=== PATIENT | male | born 1950 | race Caucasian/White ===

== ENCOUNTER 2016-11-15 12:35 | Inpatient (IN) | payer MEDICARE ==
[~2016-11-15] VITALS: Ht 165.1 cm; Wt 68.0 kg
--- NOTE | 2016-11-15 10:40 | NUR ---
RECEIVED PT IN STABLE CONDITION FROM AM NURSE. AWAKE,ALERT AND ORIENTED . ON TELE MONITOR. WITH IVF INFUISNG WELL ON THE RT FA#[id number]. CLEAR AND PATENT. US VENOUS BLE AND ARTERIAL STILL GOING ON AT BEDSIDE. PT ON 1: 1 SITTER DUE TO BEING COMBATIVE. SIDE RAILS IP X2. BED ON LOW POSITION. CALL LIGHT PLACED WITHIN EASY REACH. WILL CONTINUE TO MONITOR. Addendum: 11/15/16 at 1950 by Maranda Gilliam RN PLS CANCEL ABOVE NOTES . CAREGIVER MISTAKE.
--- NOTE | 2016-11-15 12:35 | NUR ---
Patient was BIBA at this time. Patient triaged in triage room on [facility].
[2016-11-15 12:47] VITALS: BP 143/102
[2016-11-15] MEDS ORDERED: NACL 0.9% 1,000 ML IV ONE ×4 (12:50→16:40)
--- NOTE | 2016-11-15 13:00 | NUR ---
Patient taken to bed 04 via gurney per EMS.
--- NOTE | 2016-11-15 13:05 | NUR ---
PATIENT brought in by ems from [facility] ([facility]) c/o generalized weakness , poor intake, and unsteady gait with 9lbs weight loss in the past month hx---htn, dm, gerd, schizoaffective, major depression,hyperlipidemia, bph, pressure ulcer of sacral stage 3 rx----zyprexa, depakote . DENIES N/V/D; SKIN IS PINK/WARM/DRY; AAOX4; LUNGS CLEAR BL; HR EVEN AND REGULAR; PT DENIES ANY FEVER, CP, SOB, OR COUGH AT THIS TIME; PATIENT STATES PAIN OF 0/10 AT THIS TIME; VSS; PATIENT POSITIONED FOR COMFORT; HOB ELEVATED; BEDRAILS UP X2; BED DOWN. ER MD MADE AWARE OF PT STATUS.
[2016-11-15] MEDS ORDERED: INSULIN HUMAN REGULAR 100 UNITS/ML 10 ML VIAL IVP ONE ×2 (13:10→13:25)
--- NOTE | 2016-11-15 13:16 | NUR ---
XRAY at bedside.
[2016-11-15 13:21] LABS: BASOPHILS # (AUTO) 0.1 K/uL (0.00-0.22); BASOPHILS % (AUTO) 0.7 % (0.0-2.0); EOSINOPHILS # (AUTO) 0.1 K/uL (0-0.4); EOSINOPHILS % (AUTO) 1.4 % (0.0-4.0); HEMATOCRIT 46.7 % (36-52); HEMOGLOBIN 15.4 g/dL (12.0-18.0); LYMPHOCYTES # (AUTO) 0.9 K/uL (2.0-11.5); LYMPHOCYTES % (AUTO) 8.2 % (20.5-51.1); MEAN CORPUSCULAR HEMOGLOBIN 32 pg (27-31); MEAN CORPUSCULAR HGB CONC 33 g/dL (33-37); MEAN CORPUSCULAR VOLUME 98 fL (80-94); MONOCYTES # (AUTO) 1.2 K/uL (0.8-1.0); MONOCYTES % (AUTO) 11.8 % (1.7-9.3); NEUTROPHILS # (AUTO) 8.1 K/uL (1.8-7.7); NEUTROPHILS % (AUTO) 77.9 % (42.2-75.2); PLATELET COUNT (AUTO) 352 K/uL (140-450); RED BLOOD CELL COUNT(AUTO) 4.76 MIL/uL (4.20-6.10); WHITE BLOOD COUNT (AUTO) 10.4 K/uL (4.8-10.8)
[2016-11-15 13:30] LABS: APPEARANCE,URINE CLOUDY (CLEAR); BILIRUBIN,URINE NEGATIVE (NEGATIVE); COLOR,URINE YELLOW (YELLOW); LEUKOCYTE ESTERASE ,URINE 2+ (NEGATIVE); PH,URINE 5.5 (5.0-9.0); PROTEIN,URINE 1+ (NEGATIVE); UGLUCOSE 3+ (NEGATIVE); UROBILINOGEN,URINE 0.2 EU/dL (0.2 - 1)
[2016-11-15 13:36] LABS: AMPHETAMINE, URINE NEG. ng/ml (NEG <=1000); BARBITURATE, URINE NEG. ng/ml (NEG <=200); BENZODIAZEPINE, URINE NEG. ng/mL (NEG <=200); CANNABINOID, URINE NEG. ng/mL (NEG <=50); COCAINE, URINE NEG. ng/mL (NEG <=300); OPIATE, URINE NEG. ng/mL (NEG <=2000); PHENCYCLIDINE SCREEN,URINE NEG. ng/mL (NEG <=25)
[2016-11-15 13:38] LABS: PROTHROMBIN TIME 10.5 secs (10.8-13.4)
[2016-11-15 13:40] LABS: ALANINE AMINOTRANSFERASE 30 U/L (12-78); ALBUMIN 3.3 g/dL (3.4-5.0); ALCOHOL, BLOOD < 3 mg/dL (<3); ALKALINE PHOSPHATASE 114 U/L (46-116); ASPARTATE AMINOTRANSFERASE 19 U/L (15-37); BILIRUBIN,DIRECT 0.2 mg/dL (0.0-0.3); TOTAL BILIRUBIN 0.5 mg/dL (0.0-1.0); TOTAL PROTEIN, SERUM 8.9 g/dL (6.4-8.2)
[2016-11-15 13:43] LABS: ALBUMIN 3.4 g/dL (3.4-5.0); ANION GAP 18.2 (8-16); CALCIUM 10.1 mg/dL (8.5-10.1); CARBON DIOXIDE 21.5 mmol/L (21-32); CREATININE 1.8 mg/dL (0.6-1.3); POTASSIUM 5.7 mmol/L (3.5-5.1); TOTAL BILIRUBIN 0.5 mg/dL (0.0-1.0); TOTAL PROTEIN, SERUM 8.8 g/dL (6.4-8.2)
[2016-11-15 13:45] LABS: BLOOD, URINE 1+ (NEGATIVE); WBC,URINE 60-80 /HPF (0-5)
[2016-11-15 13:46] LABS: BACTERIA,URINE FEW /HPF (None Seen); NITRITE, URINE POSITIVE (NEGATIVE); SQUAMOUS EPITHELIAL CELL,UR 0-3 (FEW) /LPF (0-3 (FEW))
[2016-11-15 13:47] LABS: URINE AMORPHOUS URATE 1+ /HPF (None Seen)
[2016-11-15 13:59] LABS: PARTIAL THROMBOPLASTIN TIME 30.8 secs (22-35.6); PROTHROMBIN TIME 10.5 secs (10.8-13.4)
[2016-11-15] MEDS ORDERED: cefTRIAXone 1,000 MG VIAL ONE (14:13)
[2016-11-15] MEDS ORDERED: HYDROcodone/APAP 7.5/325 MG 1 TAB PO PRN (15:20)
[2016-11-15] MEDS ORDERED: MORPHINE SULFATE 2 MG/ML SYR IVP PRN (15:20)
[2016-11-15] MEDS ORDERED: DOCUSATE SODIUM 100 MG GELCAP PO PRN (15:20)
[2016-11-15] MEDS ORDERED: ONDANSETRON 4 MG/2 ML VIAL IM/IVP PRN (15:20)
[2016-11-15] MEDS ORDERED: ACETAMINOPHEN 325 MG TAB PO PRN (15:20)
--- NOTE | 2016-11-15 15:34 | NUR ---
RN NOT AVAILABLE FOR REPORT AT THIS TIME, WILL CALL BACK
--- NOTE | 2016-11-15 15:49 | NUR ---
Patient will be admitted to care of DR MEAD. Admited to TELE. Will go to [id number]. Belongings list completed. Report to NALINI PETERSON.
[2016-11-15 16:10] VITALS: BP 148/98
--- NOTE | 2016-11-15 16:10 | NUR ---
PT BROUGHT UP FROM ER IN [facility], PT AWAKE ALERT, AMBULATES WITH SHUFFLING GATE FROM HALLWAY TO BED, PT OX1 ONLY, MUMBLING, FOLLOWS COMMANDS SOMEWHAT, RESP EVEN UNLABORED, SKIN WARM DRY COLOR WNL, REDNESS TO SACRAL AREA, SCALEY SCABS NOTED TO LEFT ELBOW, SMALL ABRASION TO RIGHT KNEE NOTED, WILL TAKE PICS, VSS, IV TO R FA WRAPPED FOR PROTECTION, PT WITH ENLARGED SCROTUM, DR GILMAN AT [facility] FOR EVAL, CALL ANTOINE WITHIN REACH, BED LOCKED IN LOW POSITION, BED ALARM ON, SIDE RAILS UP, WILL CONTINUE TO MONITOR
[2016-11-15 16:17] LABS: MAGNESIUM 2.1 mg/dL (1.8-2.4); PHOSPHORUS 3.3 mg/dL (2.5-4.9)
[2016-11-15 16:24] LABS: FREE T4 (FREE THYROXINE) 1.25 ng/dL (0.76-1.46); THYROID STIMULATING HORMONE 2.81 uIU/mL (0.34-3.76)
[2016-11-15] MEDS: BLOOD GLUCOSE MONITORING 1 DEV DEV FS SCH ×2 (16:30→20:39)
[2016-11-15] MEDS ORDERED: DEXTROSE 50% 50 ML SYR IVP PRN (16:30)
--- NOTE | 2016-11-15 16:30 | NUR ---
PT GETTING MORE AGGITATED, TAKING OFF LEADS, GETTING UP OUT OF BED, MAKING FISTS TO IMITATE PUNCHING NURSE, PATIENT RIPPED OUT HIS IV, PT PERSUADED TO RETURN TO BED, BLEEDING CONTROLLED, MADE AWARE OF PT STATUS BY CHARGE NURSE.
[2016-11-15] MEDS ORDERED: SODIUM POLYSTYRENE 15 GM/60 ML UDBTL PO SCH (16:40)
[2016-11-15] MEDS ORDERED: HALOPERIDOL IM 5 MG/ML VIAL IM PRN (16:45)
--- NOTE | 2016-11-15 16:55 | NUR ---
NEW IV STARTED TO RIGHT RA 20G, ATIVAN GIVEN PER ORDER, MITTENS PLACED TO BILAT HANDS, IV WRAPPED WELL WITH PUMA, BED LOCKED IN LOW POSITION, SIDE RAILS UP X2, BED ALARM ON. LAB AT BEDSIDE FOR BLOOD DRAW.
[2016-11-15] MEDS ORDERED: LORazepam 2 MG/ML VIAL ONE (16:56)
[2016-11-15] MEDS: NACL 0.9% 1,000 ML IV SCH ×2 (16:56→22:54)
--- NOTE | 2016-11-15 16:57 | NUR ---
ATIVAN GIVEN IV PER ORDER FOR AGITATION AND COMBATIVENESS.
--- NOTE | 2016-11-15 17:15 | NUR ---
PICTURES OF WOUNDS TAKEN LEFT ELBOW [id number] RIGHT KNEE 2X2CM
--- NOTE | 2016-11-15 17:20 | NUR ---
PT NOW SLEEPING QUIETLY IN NAD, RESP EVEN UNLABORED, SKIN WARM DRY COLOR WNL, PT REPLACED ON TAXICAB STARTER, IVF INFUSING WELL, US TECH TO BEDSIDE.
[2016-11-15 17:33] LABS: LACTIC ACID 3.4 mmol/L (0.4-2.0)
[2016-11-15 17:34] LABS: PARTIAL THROMBOPLASTIN TIME 31.4 secs (22-35.6); PROTHROMBIN TIME 10.9 secs (10.8-13.4)
--- NOTE | 2016-11-15 17:50 | NUR ---
PT AWAKE, TAKES OFF MITTENS REPEATEDLY, 1:1 SITTER AT BEDSIDE, PT MULUGETA PO KEXALATE WELL WITHOUT PROBLEM.
--- NOTE | 2016-11-15 19:36 | NUR ---
REPORT GIVEN TO NIGHT NURSE, PT IN STABLE CONDITION.
--- NOTE | 2016-11-15 19:40 | NUR ---
RECEIVED PT IN STABLE CONDITION FROM AM NURSE. AWAKE,ALERT AND ORIENTED . ON TELE MONITOR. WITH IVF INFUISNG WELL ON THE RT FA#$20. CLEAR AND PATENT. US VENOUS BLE AND ARTERIAL STILL GOING ON AT BEDSIDE. PT ON 1: 1 SITTER DUE TO BEING COMBATIVE. SIDE RAILS IP X2. BED ON LOW POSITION. CALL LIGHT PLACED WITHIN EASY REACH. WILL CONTINUE TO MONITOR
[2016-11-15 20:00] VITALS: BP 148/96
[2016-11-15] MEDS: QUEtiapine FUMARATE 25 MG TAB PO SCH (21:00)
[2016-11-15] MEDS ORDERED: INSULIN DETEMIR 100 UNITS/ML 10 ML VIAL SUBQ SCH (21:00)
--- NOTE | 2016-11-15 21:00 | NUR ---
BLOOD SUGAR WAS CHECKED RESULT 389. PT NPO. JEANNIE KHOURY. DR. GONG CALLED BACK AND HE SAID OK TO GIVE ONLY 8 UNITS HUMALOG COVERAGE INSTEAD OF 15 UNITS SCHEDULED .
[2016-11-15] MEDS: INSULIN LISPRO SLIDING SCALE 100 UNITS/ML VIAL SUBQ PRN (21:02)
[2016-11-15] MEDS: LORazepam 2 MG/ML VIAL IVP PRN (21:09)
--- NOTE | 2016-11-15 21:09 | NUR ---
PT IS STILL AGITATED, TRYING TO GET OUT OF BED. MEDICATED WITH ATIVAN IVP ORDERED. WILL CONTINUE TO MONITOR TO CALM HIM DOWN FOR PT STILL NEED TO HAVE CT ABDOMEN/PELVIS DONE.
--- NOTE | 2016-11-15 22:00 | NUR ---
PT INCONTINENT. HAS BEEN CHANGED 2X. CLEANED AND KEPT DRY. SCROTUM AREA SWOLLEN AND PINK COLORED.
--- NOTE | 2016-11-15 23:00 | NUR ---
TO CT DEPT BY BED FOR CT ABDOMEN /PELVIS.
--- NOTE | 2016-11-15 23:17 | NUR ---
BACK FROM CT DEPT. WILL FOLLOW UP RESULT OF CT ABDOMEN /PELVIS.
[2016-11-15 23:45] VITALS: BP 148/98
--- NOTE | 2016-11-16 00:39 | NUR ---
PT IS AWAKE, VERY AGITATED , TRYING TO GET OUT OF BED AND PULLING TUBINGS. MEDICATED WITH HALDOL 1MG IM ORDERED PRN.
--- NOTE | 2016-11-16 01:45 | NUR ---
PAGED DR. GONG FOR RESULTS OF CT ABDOMEM/PELVIS AND US ARTERIAL BLE. CALLED BACK AND MADE HIM AWARE. NO ORDERS MADE.
[2016-11-16] MEDS: NACL 0.9% 1,000 ML IV SCH ×4 (02:36→17:58)
--- NOTE | 2016-11-16 03:30 | NUR ---
PT STILL WITH PERIODS OF CONFUSION. 1:1 SITTER AT BEDSIDE.
[2016-11-16] MEDS ORDERED: METO100T22 PO (03:55)
[2016-11-16] MEDS ORDERED: ACET-2619 PO (03:55)
[2016-11-16] MEDS ORDERED: QUET100T PO (03:55)
[2016-11-16] MEDS ORDERED: INSU-1331 SUBQ (03:55)
[2016-11-16] MEDS ORDERED: METF500T64 PO (03:55)
[2016-11-16] MEDS ORDERED: MAGN400S60 PO (03:55)
[2016-11-16] MEDS ORDERED: QUET200T PO (03:55)
[2016-11-16] MEDS ORDERED: [UNRECOGNIZED DRUG - CODE] PO (03:55)
[2016-11-16] MEDS ORDERED: FURO-572 PO (03:55)
[2016-11-16] MEDS ORDERED: ASPI81CT89 PO (03:55)
[2016-11-16] MEDS ORDERED: LISI5TAB18 PO (03:55)
[2016-11-16] MEDS ORDERED: [UNRECOGNIZED DRUG - CODE] PO (03:55)
[2016-11-16] MEDS ORDERED: PANT40EC PO (03:55)
[2016-11-16] MEDS ORDERED: MEMA5TAB PO (03:55)
[2016-11-16] MEDS ORDERED: TOLT2TAB PO (03:55)
[2016-11-16] MEDS ORDERED: MIRT15OD PO (03:55)
[2016-11-16] MEDS ORDERED: DONE5TAB2 PO (03:55)
[2016-11-16] MEDS ORDERED: MAA30 PO (03:57)
[2016-11-16 04:30] VITALS: BP 144/95
--- NOTE | 2016-11-16 05:30 | NUR ---
PT HAS BEEN CLEANED AND TURNED , FOUND SACROCOCCYGEAL AREA WITH OPEN WOUND. PICTURE TAKEN. WILL ENDORSE TO AM NURSE FOR MD TO GIVE TREATMENT.
[2016-11-16] MEDS: BLOOD GLUCOSE MONITORING 1 DEV DEV FS SCH ×4 (06:16→21:03)
[2016-11-16] MEDS: INSULIN LISPRO SLIDING SCALE 100 UNITS/ML VIAL SUBQ PRN ×4 (06:22→21:03)
--- NOTE | 2016-11-16 06:22 | NUR ---
BLOOD SUGAR THIS AM WAS CHECKED RESULT 310. INSULIN COVERAGE GIVEN SUBCUTANEOUS RT DELTOID. PT HAS CONTINUOUS IVF INFUSING @150 ML /HR.
--- NOTE | 2016-11-16 07:20 | NUR ---
ENDORSED PT IN STABLE CONDITION TO AM NURSE.
--- NOTE | 2016-11-16 07:21 | NUR ---
RECEIVED REPORT FROM THE SERVICES REP NURSE AT BEDSIDE FOR CONTINUITY OF CARE. I INTRODUCED MYSELF AND UPDATED THE BOARD. PT IS AWAKE AND CALM. NO SIGNS OF DISTRESS OR COMBATIVENESS LIKE YESTERDAY. HE HAS AN IV ON R FA 20G, NS 150ML, CLING WRAPPED. MITTENS IN PLACE. NOTED NEW SACRAL ULCER, 1CM X 0.2CM. PSORIASIS ON L ELBOW, R KNEE SCAB, REDNESS IN PERIAREA, ENLARGED SCROTUM. THERE WAS AN ORDER FOR A JOVEL. WILL BE BACK TO ASSESS.
--- NOTE | 2016-11-16 07:50 | NUR ---
V/S WITHIN NORMAL RANGE. SITTER AT BEDSIDE. WILL GET SUPPLIES FOR JOVEL CATH.
[2016-11-16 08:00] VITALS: BP 145/98
--- NOTE | 2016-11-16 08:00 | NUR ---
JOVEL CATH ADMINISTERED. FIRST CLEAR YELLOW URINE, THEN OPAQUE WHITE FLUID. 2000ML IN JOVEL BAG. WILL SPEAK TO MD AND SEND SAMPLE FOR CULTURE.
[2016-11-16] MEDS: QUEtiapine FUMARATE 25 MG TAB PO SCH (08:52)
--- NOTE | 2016-11-16 08:55 | NUR ---
ADMINISTERED MORNING MED. CRUSHED IN APPLE SAUCE. PT TOLERATED WELL. DR GILMAN CAME IN. NOTED THE JOVEL BAG. AGREED HE SHOULD BE ON A PUREED DIET. NOTED THE FACILITY MED. WILL RECONCILE.
[2016-11-16 09:29] LABS: HEMATOCRIT 42.4 % (36-52); HEMOGLOBIN 14.2 g/dL (12.0-18.0); MEAN CORPUSCULAR HEMOGLOBIN 33 pg (27-31); MEAN CORPUSCULAR HGB CONC 34 g/dL (33-37); MEAN CORPUSCULAR VOLUME 97 fL (80-94); PLATELET COUNT (AUTO) 297 K/uL (140-450); RED BLOOD CELL COUNT(AUTO) 4.37 MIL/uL (4.20-6.10); RED CELL DISTRIBUTION WIDTH 12.1 % (11.6-13.7); WHITE BLOOD COUNT (AUTO) 11.9 K/uL (4.8-10.8)
--- NOTE | 2016-11-16 09:30 | NUR ---
DROPPED OFF URINE SAMPLE OFF TO LAB.
[2016-11-16 09:40] LABS: BAND % (MANUAL) 17 % (0-8); LYMPHOCYTES % (MANUAL) 6 % (20-46); MONOCYTES % (MANUAL) 7 % (5-12); NEUTROPHILS % (MANUAL) 70 (43-65)
--- NOTE | 2016-11-16 09:54 | NUR ---
PT RESTING PEACEFULLY. NO SIGNS OF DISTRESS. WILL CONTINUE TO MONITOR PT.
[2016-11-16] MEDS ORDERED: MAGNESIUM HYDROXIDE 2400 MG/30 ML UDC PO PRN (09:55)
[2016-11-16 09:59] LABS: MAGNESIUM 1.8 mg/dL (1.8-2.4); PHOSPHORUS 2.2 mg/dL (2.5-4.9)
[2016-11-16 10:00] LABS: ANION GAP 14.3 (8-16); CALCIUM 8.7 mg/dL (8.5-10.1); CARBON DIOXIDE 24.5 mmol/L (21-32); POTASSIUM 3.8 mmol/L (3.5-5.1)
[2016-11-16 10:01] LABS: CREATININE 1.2 mg/dL (0.6-1.3)
[2016-11-16] MEDS ORDERED: INSULIN DETEMIR 100 UNITS/ML 10 ML VIAL SUBQ SCH (10:06)
[2016-11-16 12:00] VITALS: BP 153/92
--- NOTE | 2016-11-16 12:00 | NUR ---
UROLOGIST CAME TO SEE PT.
--- NOTE | 2016-11-16 12:30 | NUR ---
PT SPOKE TO BROTHER ON PHONE, ABLE TO ANSWER AND SAY "I MAY NEVER WALK AGAIN." SITTER AT BEDSIDE. PER SITTER, PT ATE 100%. TRIES TO TAKE HIS MITTENS OFF. WILL CONTINUE TO MONITOR PT.
--- NOTE | 2016-11-16 14:07 | NUR ---
PT RESTING IN BED. SITTER AT BEDSIDE. NO SIGNS OF DISTRESS. NO SIGNS OF PAIN. FLACC-0. WILL CONTINUE TO MONITOR PT.
[2016-11-16 16:00] VITALS: BP 153/92
--- NOTE | 2016-11-16 16:45 | NUR ---
PT SLEEPING WITH SITTER AT BEDSIDE. NO SIGNS OF DISTRESS. WILL CONTINUE TO MONITOR PT.
[2016-11-16] MEDS: metFORMIN 500 MG TAB PO SCH (17:58)
--- NOTE | 2016-11-16 19:10 | NUR ---
ENDORSED PT TO THE NIGHTSHIFT NURSE AT BEDSIDE FOR CONTINUITY OF CARE. PT IS IN STABLE CONDITION.
--- NOTE | 2016-11-16 19:10 | NUR ---
RECEIVED REPORT FROM NALINI QUINN AT BEDSIDE. INITIAL ASSESSMENT COMPLETED. PT AAX2; CONFUSED. PT MUMBLES. PT HAS MITTENS ON; DAY SHIFT NURSE STATES THAT PT WAS COMBATIVE DURING THE DAY AND TOOK OFF TELE MONITOR. PT STABLE AT THIS TIME. PT ON ROOM AIR, STABLE. PT HAS A JOVEL CATHETER IN PLACE. PT HAS SACRAL DECUBITUS, SCROTAL SWELLING. PT HAS LEFT ELBOW SCAR, RIGHT KNEE ABRASION. PT HAS CDS, PT HAS A 1:1 SITTER. WILL CONTINUE TO MONITOR PT. Addendum: 11/16/16 at 1946 by Rowena Peck RN SACRAL DECUBITUS IS OPEN TO AIR.
[2016-11-16 20:00] VITALS: BP 141/109
--- NOTE | 2016-11-16 20:00 | NUR ---
PT TURNED AND REPOSITIONED. WILL CONTINUE TO MONITOR PT.
[2016-11-16] MEDS: DONEPEZIL 10 MG TAB PO SCH (20:38)
[2016-11-16] MEDS: MEMANTINE 10 MG TAB PO SCH (20:38)
[2016-11-16] MEDS: QUEtiapine FUMARATE 100 MG TAB PO SCH (20:39)
--- NOTE | 2016-11-16 20:41 | NUR ---
PT TOLERATED 2100 MEDS WELL. WILL CONTINUE TO MONITOR PT.
--- NOTE | 2016-11-16 22:00 | NUR ---
PT TURNED AND REPOSITIONED. PT STABLE, WILL CONTINUE TO MONITOR PT.
[2016-11-17] VITALS: BP 145/105
--- NOTE | 2016-11-17 | NUR ---
PT TURNED AND REPOSITIONED. PT TOLERATED IT WELL. WILL CONTINUE TO MONITOR.
[2016-11-17] MEDS: NACL 0.9% 1,000 ML IV SCH ×2 (00:50→06:57)
--- NOTE | 2016-11-17 02:00 | NUR ---
PT TURNED/REPOSITIONED. NO SIGNS OF DISTRESS NOTED. SITTER AT BEDSIDE.
--- NOTE | 2016-11-17 03:10 | NUR ---
PT AWAKE WATCHING TV, NO SIGNS OF DISTRESS OR DISCOMFORT NOTED. WILL CONTINUE TO MONITOR PT.
[2016-11-17 04:00] VITALS: BP 149/98
--- NOTE | 2016-11-17 04:00 | NUR ---
PT TURNED/REPOSITIONED. NO SIGNS OF DISTRESS NOTED. SITTER AT BEDSIDE.
--- NOTE | 2016-11-17 06:00 | NUR ---
PT REPOSITIONED/TURNED. PT TOLERATED IT WELL. WILL CONTINUE TO MONITOR PT.
[2016-11-17] MEDS: BLOOD GLUCOSE MONITORING 1 DEV DEV FS SCH ×4 (06:22→21:00)
--- NOTE | 2016-11-17 07:18 | NUR ---
DR NOEL MADE AWARE OF PT'S V/S, BP 165/106, HR 103. NO SIGNS OF ACUTE DISTRESS NOTED. PT IS AWAKE AND RESPONSIVE. NEW ORDERS RECEIVED FROM DR. NOEL. NOTED AND CARRIED OUT.
--- NOTE | 2016-11-17 07:34 | NUR ---
ENDORSED PLAN OF CARE TO DAY SHIFT NURSE. PT IN STABLE CONDITION. SITTER AT BEDSIDE.
--- NOTE | 2016-11-17 07:36 | NUR ---
PT AWAKE AND RESPONSIVE, WITH PERIODS OF CONFUSION. BREATHING EVENLY AND UNLABORED. NO SIGNS OF ACUTE DISTRESS. SKIN IS WARM AND DRY, OFFLOAD TO PRESSURE AREAS. NO EPISODES OF ANY NAUSEA OR VOMITING. WITH JOVEL CATHETER INTACT AND PATENT, NOTED 300ML OF CLEAR YELLOW URINE. FLACC 0. ALL NEEDS ATTENDED, SAFETY PRECAUTIONS MAINTAINED. 1:1 SITTER AT BEDSIDE. CALL LIGHT WITHIN REACH.
[2016-11-17 07:39] VITALS: BP 165/106
[2016-11-17] MEDS: metFORMIN 500 MG TAB PO SCH ×3 (08:00→17:00)
[2016-11-17] MEDS: INSULIN DETEMIR 100 UNITS/ML 10 ML VIAL SUBQ SCH (08:10)
[2016-11-17] MEDS: FUROSEMIDE 20 MG TAB PO SCH ×2 (08:12→08:24)
[2016-11-17] MEDS: MEMANTINE 10 MG TAB PO SCH ×2 (08:12→22:09)
[2016-11-17] MEDS: QUEtiapine FUMARATE 100 MG TAB PO SCH ×3 (08:12→22:08)
[2016-11-17] MEDS: TAMSULOSIN 0.4 MG CAP PO SCH ×2 (08:12→08:24)
[2016-11-17] MEDS: FINASTERIDE 5 MG TAB PO SCH ×2 (08:12→08:24)
[2016-11-17] MEDS: LISINOPRIL 5 MG TAB PO SCH ×2 (08:13→08:24)
[2016-11-17] MEDS: LORazepam 2 MG/ML VIAL IVP PRN ×2 (08:17→16:09)
--- NOTE | 2016-11-17 08:25 | NUR ---
PT WASTED AND REFUSED AM PO MEDS. DR. GILMAN AWARE.
[2016-11-17] MEDS ORDERED: LABETALOL 100 MG/20 ML VIAL IV SCH (08:30)
[2016-11-17] MEDS ORDERED: LISINOPRIL 5 MG TAB PO SCH (09:00)
--- NOTE | 2016-11-17 09:40 | NUR ---
BP DECREASED TO 153/81. PT IS ASLEEP. NO SIGNS OF ACUTE DISTRESS. FLACC 0. CONTINUE TO MONITOR. 1:1 SITTER AT BEDSIDE
[2016-11-17] MEDS: Z-GUARD PASTE TP SCH ×2 (09:42→22:33)
--- NOTE | 2016-11-17 09:53 | NUR ---
PATIENT HAS BEEN SCREENED AND CATEGORIZED HIGH NUTRITION RISK. PATIENT WILL BE SEEN WITHIN 1-2 DAYS OF ADMISSION. 11/16/16-11/17/[address]
--- NOTE | 2016-11-17 10:22 | NUR ---
SPOKE WITH IVETTE FROM [facility]. FAXED INITIAL REVIEW TO HER AT [phone] PHONE IVETTE [phone]
[2016-11-17] MEDS: [UNRECOGNIZED DRUG - OTHER] OP SCH ×5 (11:00→22:09)
[2016-11-17] MEDS: INSULIN LISPRO SLIDING SCALE 100 UNITS/ML VIAL SUBQ PRN ×3 (11:13→22:20)
[2016-11-17 11:47] VITALS: BP 153/93
--- NOTE | 2016-11-17 12:03 | NUR ---
11/17/16 RD INITIAL ASSESSMENT COMPLETED PLEASE REFER TO NUTRITION ASSESSMENT UNDER CARE ACTIVITY FOR ESTIMATED NUTRITIONAL NEEDS. 1. CONTINUE 60 G CONSISTENT CARBOHYDRATE, PUREE DIET 2. RD TO FOLLOW-UP 2-3 DAYS; HIGH RISK SANTIAGO [address]SON [address]
--- NOTE | 2016-11-17 14:09 | NUR ---
NEW LAB ORDERS RECEIVED FROM DR. JANE, NOTED AND CARRIED OUT.
[2016-11-17 16:00] VITALS: BP 158/111
--- NOTE | 2016-11-17 18:50 | NUR ---
PT AWAKE AND RESPONSIVE, NO SIGNS OF ACUTE DISTRESS. WILL ENDORSE TO ONCOMING HOUSEHOLD COOK NURSE FOR CONTINUITY OF CARE.
--- NOTE | 2016-11-17 19:30 | NUR ---
RECEIVED REPORT FROM NALINI SMITH AT BEDSIDE. INITIAL ASSESSMENT COMPLETED. PT AAX2; CONFUSED. PT MUMBLES. PT HAS MITTENS ON TO PREVENT PT FROM REMOVING IV. PT STABLE AT THIS TIME. PT ON ROOM AIR, STABLE. PT HAS A JOVEL CATHETER IN PLACE. PT HAS SACRAL DECUBITUS, SCROTAL SWELLING. PT HAS LEFT ELBOW SCAR, RIGHT KNEE ABRASION. PT HAS CDS, PT HAS A 1:1 SITTER. WILL CONTINUE TO MONITOR PT.
[2016-11-17 20:00] VITALS: BP 151/109
--- NOTE | 2016-11-17 20:00 | NUR ---
PT TURNED/REPOSITIONED. PT TOLERATED IT WELL. SITTER AT BEDSIDE.
--- NOTE | 2016-11-17 22:00 | NUR ---
PT TURNED/REPOSITIONED. PT TOLERATED IT WELL. SITTER AT BEDSIDE.
--- NOTE | 2016-11-17 22:07 | NUR ---
PT HAS A FEVER 100.5, WILL GIVE TYLENOL ORDERED.
[2016-11-17] MEDS: DONEPEZIL 10 MG TAB PO SCH (22:09)
--- NOTE | 2016-11-17 22:22 | NUR ---
PT TOLERATED 2100 MEDS WELL. PO MEDS CRASHED AND GIVEN WITH APPLE SAUCE. SITTER AT BEDSIDE.
--- NOTE | 2016-11-17 23:00 | NUR ---
PT'S TEMPERATURE IS NOW 98.7, WILL CONTINUE TO MONITOR PT.
[2016-11-18] VITALS: BP 148/105
--- NOTE | 2016-11-18 | NUR ---
PT TURNED/REPOSITIONED. PT TOLERATED IT WELL. SITTER AT BEDSIDE. PT STABLE, VS STABLE.
[2016-11-18] MEDS: [UNRECOGNIZED DRUG - OTHER] OP SCH ×8 (01:07→21:33)
[2016-11-18] MEDS: NACL 0.9% 1,000 ML IV SCH (01:42)
--- NOTE | 2016-11-18 02:00 | NUR ---
PT TURNED/REPOSITIONED. PT TOLERATED IT WELL. NO SIGNS OF DISTRESS NOTED. WILL CONTINUE TO MONITOR PT.
[2016-11-18 04:00] VITALS: BP 108/69
--- NOTE | 2016-11-18 04:00 | NUR ---
PT TRYING TO REMOVE HIS TELE MONITOR. PT TURNED/REPOSITIONED. WILL CONTINUE TO MONITOR.
--- NOTE | 2016-11-18 06:00 | NUR ---
PT TURNED/REPOSITIONED. PT TOLERATED IT WELL. WILL CONTINUE TO MONITOR PT.
[2016-11-18] MEDS: BLOOD GLUCOSE MONITORING 1 DEV DEV FS SCH ×4 (06:43→21:29)
[2016-11-18] MEDS: INSULIN LISPRO SLIDING SCALE 100 UNITS/ML VIAL SUBQ PRN ×3 (06:43→16:34)
--- NOTE | 2016-11-18 07:00 | NUR ---
PT AWAKE AND RESPONSIVE, WITH PERIODS OF CONFUSION. BREATHING EVENLY AND UNLABORED. NO SIGNS OF ACUTE DISTRESS. SKIN IS WARM AND DRY, OFFLOAD TO PRESSURE AREAS. NO EPISODES OF ANY NAUSEA OR VOMITING. WITH JOVEL CATHETER INTACT AND PATENT, NOTED 350ML OF YELLOW COLORED URINE. FLACC 0. ALL NEEDS ATTENDED, SAFETY PRECAUTIONS MAINTAINED. CALL LIGHT WITHIN REACH.
[2016-11-18 07:12] LABS: BASOPHILS # (AUTO) 0.2 K/uL (0.00-0.22); BASOPHILS % (AUTO) 1.5 % (0.0-2.0); EOSINOPHILS # (AUTO) 0.2 K/uL (0-0.4); EOSINOPHILS % (AUTO) 1.7 % (0.0-4.0); HEMOGLOBIN 13.2 g/dL (12.0-18.0); LYMPHOCYTES # (AUTO) 1.6 K/uL (2.0-11.5); LYMPHOCYTES % (AUTO) 13.4 % (20.5-51.1); MEAN CORPUSCULAR HEMOGLOBIN 33 pg (27-31); MEAN CORPUSCULAR HGB CONC 34 g/dL (33-37); MEAN CORPUSCULAR VOLUME 98 fL (80-94); MONOCYTES # (AUTO) 0.5 K/uL (0.8-1.0); MONOCYTES % (AUTO) 4.5 % (1.7-9.3); NEUTROPHILS # (AUTO) 9.4 K/uL (1.8-7.7); NEUTROPHILS % (AUTO) 78.9 % (42.2-75.2); PLATELET COUNT (AUTO) 256 K/uL (140-450); RED BLOOD CELL COUNT(AUTO) 3.98 MIL/uL (4.20-6.10); RED CELL DISTRIBUTION WIDTH 11.6 % (11.6-13.7); WHITE BLOOD COUNT (AUTO) 11.9 K/uL (4.8-10.8)
[2016-11-18 07:23] LABS: ANION GAP 13.4 (8-16); CALCIUM 7.7 mg/dL (8.5-10.1); CARBON DIOXIDE 26.5 mmol/L (21-32); CREATININE 0.8 mg/dL (0.6-1.3)
[2016-11-18 07:29] LABS: MAGNESIUM 1.6 mg/dL (1.8-2.4); PHOSPHORUS 2.9 mg/dL (2.5-4.9)
[2016-11-18 08:00] VITALS: BP 148/90
[2016-11-18] MEDS: metFORMIN 500 MG TAB PO SCH ×2 (08:00→16:45)
[2016-11-18 08:14] LABS: POTASSIUM 2.9 mmol/L (3.5-5.1)
--- NOTE | 2016-11-18 08:15 | NUR ---
AM LAB VALUES REPORTED TO DR. JANE, NEW ORDERS RECEIVED. NOTED AND CARRIED OUT.
[2016-11-18] MEDS: FINASTERIDE 5 MG TAB PO SCH (08:16)
[2016-11-18] MEDS: TAMSULOSIN 0.4 MG CAP PO SCH (08:16)
[2016-11-18] MEDS: MEMANTINE 10 MG TAB PO SCH ×2 (08:16→21:31)
[2016-11-18] MEDS: LISINOPRIL 5 MG TAB PO SCH (08:16)
[2016-11-18] MEDS: FUROSEMIDE 20 MG TAB PO SCH (08:16)
[2016-11-18] MEDS: QUEtiapine FUMARATE 100 MG TAB PO SCH ×2 (08:16→21:30)
[2016-11-18] MEDS ORDERED: MAG SULF 2000 MG/WATER PREMIX 50 ML IV SCH (08:17)
[2016-11-18] MEDS: Z-GUARD PASTE TP SCH ×2 (08:17→21:33)
[2016-11-18] MEDS: INSULIN DETEMIR 100 UNITS/ML 10 ML VIAL SUBQ SCH (08:54)
[2016-11-18] MEDS ORDERED: POTASSIUM CHLORIDE 40 MEQ, LIDOCAINE 1% 25 MG in NACL 0.9% 250 ML IV SCH (09:00)
[2016-11-18] MEDS: LORazepam 2 MG/ML VIAL IVP PRN (09:50)
--- NOTE | 2016-11-18 10:33 | NUR ---
FAXED CONCURRENT REVIEW TO [facility] [phone] PHONE [place] [phone]
[2016-11-18 11:57] VITALS: BP 135/88
--- NOTE | 2016-11-18 14:32 | NUR ---
PHYSICAL THERAPY CO-SIGN The Physical Therapy Progress Notes documented by Linoleum Mechanic have been reviewed. I CONCUR W/REPAIR WELDER NOTE; Pt'S PARTICIPATION LIMITED BY LETHARGY; CONT PER TX PLAN Reviewed/Co-Signed by: Jovanna Kasper PT Documentation Done by: SAE VERDE REPAIR WELDER Addendum: 11/18/16 at 1433 by Jovanna Kasper PT Amended: Links added.
--- NOTE | 2016-11-18 15:51 | NUR ---
RECEIVED NEW ORDER FROM DR. JANE, TRANSFER CARE TO [facility]. NOTED AND CARRIED OUT.
[2016-11-18 16:00] VITALS: BP 152/91
--- NOTE | 2016-11-18 18:27 | NUR ---
PT AWAKE AND RESPONSIVE, NO SIGNS OF ACUTE DISTRESS. WILL ENDORSE TO ONCOMING WREATH MACHINE TENDER NURSE FOR CONTINUITY OF CARE.
--- NOTE | 2016-11-18 19:10 | NUR ---
RECD. RESTING IN BED, AWAKE, A/OX1, MUMBLES. RESPIRATION EVEN AND UNLABORED. IV OF NS AT 30 ML/HR INFUSING RIGHT FOREARM G22. WITH SALINE LOCK AT THE LEFT FOREARM G22, PATENT AND INTACT. F/C PATENT DRAINING CLOUDY LIGHT ORANGE URINE. WITH BILATERAL LEG SEQUENTIALS. PLAN OF CARE FOR THE SHIFT DISCUSSED. REINFORCEMENT NEEDED. NO PAIN NOTED, FLACC 0. SAFETY MEASURES ENFORCED. 02 SAT -92-94% ON ROOM AIR.
[2016-11-18 20:00] VITALS: BP_SYST 156; BP_DIAS 105; BP_DIAS 95
[2016-11-18] MEDS: DONEPEZIL 10 MG TAB PO SCH (21:30)
[2016-11-18] MEDS: DOCUSATE SODIUM 100 MG GELCAP PO SCH (21:31)
--- NOTE | 2016-11-18 21:31 | NUR ---
DUE PO MEDICATIONS CRUSHED, GIVEN WITH APPLE SAUCE. TOLERATED WELL.
[2016-11-19] VITALS: BP 124/89
--- NOTE | 2016-11-19 | NUR ---
SLEEPING COMFORTABLY, NO AGITATION NOTED SINCE START OF SHIFT.
[2016-11-19] MEDS: [UNRECOGNIZED DRUG - OTHER] OP SCH ×6 (00:10→15:16)
[2016-11-19 04:00] VITALS: BP 142/92
--- NOTE | 2016-11-19 04:00 | NUR ---
VS STABLE, NO COMPLAINT OF PAIN 0/10.
[2016-11-19] MEDS: NACL 0.9% 1,000 ML IV SCH (04:14)
[2016-11-19] MEDS: BLOOD GLUCOSE MONITORING 1 DEV DEV FS SCH ×3 (06:35→16:11)
[2016-11-19] MEDS: INSULIN LISPRO SLIDING SCALE 100 UNITS/ML VIAL SUBQ PRN ×3 (06:37→16:39)
[2016-11-19 06:46] LABS: ANION GAP 11.6 (8-16); CALCIUM 7.7 mg/dL (8.5-10.1); CARBON DIOXIDE 27.9 mmol/L (21-32); CREATININE 0.8 mg/dL (0.6-1.3); POTASSIUM 3.5 mmol/L (3.5-5.1)
[2016-11-19 06:50] LABS: BASOPHILS # (AUTO) 0.3 K/uL (0.00-0.22); BASOPHILS % (AUTO) 3.3 % (0.0-2.0); EOSINOPHILS # (AUTO) 0.2 K/uL (0-0.4); EOSINOPHILS % (AUTO) 1.6 % (0.0-4.0); HEMOGLOBIN 12.7 g/dL (12.0-18.0); LYMPHOCYTES # (AUTO) 1.6 K/uL (2.0-11.5); LYMPHOCYTES % (AUTO) 15.7 % (20.5-51.1); MEAN CORPUSCULAR HEMOGLOBIN 33 pg (27-31); MEAN CORPUSCULAR HGB CONC 34 g/dL (33-37); MEAN CORPUSCULAR VOLUME 98 fL (80-94); MONOCYTES # (AUTO) 0.6 K/uL (0.8-1.0); MONOCYTES % (AUTO) 6.3 % (1.7-9.3); NEUTROPHILS # (AUTO) 7.6 K/uL (1.8-7.7); NEUTROPHILS % (AUTO) 73.1 % (42.2-75.2); PLATELET COUNT (AUTO) 269 K/uL (140-450); RED BLOOD CELL COUNT(AUTO) 3.87 MIL/uL (4.20-6.10); RED CELL DISTRIBUTION WIDTH 11.9 % (11.6-13.7); WHITE BLOOD COUNT (AUTO) 10.3 K/uL (4.8-10.8)
--- NOTE | 2016-11-19 07:00 | NUR ---
ABLE TO SLEPT WELL. CONDITION REMAIN STABLE. WILL ENDORSE TO AM NURSE FOR CONTINUITY OF CARE.
--- NOTE | 2016-11-19 07:15 | NUR ---
RECEIVED PT REPORT FROM NIGHT NURSE AT BEDSIDE. PT IS AWAKE AOX1 AND SHOWS NO S/S OF DISTRESS ON ROOM AIR. PT HAS MITTENS ON. PER NIGHT NURSE PT WAS AGITATED AND MITTENS WERE PLACED. PT HAS NOTED TWO IV'S PATENT AND INTACT ON THE LEFT AND RIGHT FOREARM. RIGHT FA HAS IVF'S RUNNING. PT HAS JOVEL CATHETER IN PLACE WITH ORANGE URINE. PT HAS NOTED SKIN ABRASIONS ON THE LEFT FOREARM AND ON THE RIGHT KNEE. NIGHT NURSE STATES OF REDDENED SACRAL. PT HAS FLACC OF 0. PT BED IS LOWERED AND SEMI FOWLERS WITH CALL LIGHT WITHIN REACH.
[2016-11-19] MEDS ORDERED: AMPI500C49 PO (07:25)
[2016-11-19 08:00] VITALS: BP 156/96
--- NOTE | 2016-11-19 08:00 | NUR ---
PT MITTENS WERE TAKEN OFF. WILL CONTINUE TO MONITOR.
--- NOTE | 2016-11-19 08:11 | NUR ---
FAXED CONCURRENT REVIEW TO [facility] [phone] PHONE IVETTE [phone] SPOKE WITH IVETTE AT [facility]. SHE SAID FOR TRANSPORT, MAY USE [facility]. AUTH [id number]*PTR
[2016-11-19] MEDS ORDERED: MULTIVIT/MIN/CA/FE/FA 1 TAB PO SCH (09:00)
[2016-11-19] MEDS ORDERED: HAL1 PO (09:10)
[2016-11-19] MEDS ORDERED: DONE10TA3 PO (09:10)
[2016-11-19] MEDS ORDERED: LISI-424 PO (09:10)
[2016-11-19] MEDS ORDERED: BLOO1STR10 FS (09:10)
[2016-11-19] MEDS ORDERED: DOCU-67 PO (09:10)
[2016-11-19] MEDS ORDERED: FINA5TAB5 PO (09:10)
[2016-11-19] MEDS ORDERED: LEVEMIR SUBQ (09:10)
[2016-11-19] MEDS ORDERED: D50SYR IVP (09:10)
[2016-11-19] MEDS ORDERED: ACET-9529 PO (09:10)
[2016-11-19] MEDS ORDERED: FURO20TA8 PO (09:10)
[2016-11-19] MEDS ORDERED: ACET-1182 PO (09:10)
[2016-11-19] MEDS ORDERED: HUMSLIDE SUBQ (09:10)
[2016-11-19] MEDS ORDERED: LORA-476 PO (09:11)
[2016-11-19] MEDS ORDERED: MOM PO (09:12)
[2016-11-19] MEDS ORDERED: TAMS0.4C96 PO (09:17)
[2016-11-19] MEDS ORDERED: SULOS OP (09:17)
[2016-11-19] MEDS ORDERED: ZGUARD TP (09:17)
[2016-11-19] MEDS: FINASTERIDE 5 MG TAB PO SCH (09:29)
[2016-11-19] MEDS: QUEtiapine FUMARATE 100 MG TAB PO SCH (09:30)
[2016-11-19] MEDS: DOCUSATE SODIUM 100 MG GELCAP PO SCH (09:30)
[2016-11-19] MEDS: LISINOPRIL 5 MG TAB PO SCH (09:30)
[2016-11-19] MEDS: MEMANTINE 10 MG TAB PO SCH (09:30)
[2016-11-19] MEDS: TAMSULOSIN 0.4 MG CAP PO SCH (09:30)
[2016-11-19] MEDS: metFORMIN 500 MG TAB PO SCH ×2 (09:30→16:38)
--- NOTE | 2016-11-19 09:30 | NUR ---
WHILE ADMINISTERING SCHEDULED MEDITATIONS PT BEGAN TO SCRATCH AND DID NOT WANT TO FINISH MEDICATIONS. MEDICATIONS WERE CRUSHED AND PUT IN APPLESAUCE. PT STATED "YOU ARE TRYING TO POISON ME. EVERYONE HERE ARE POISONING ME". SPOKE TO PT TO CALM DOWN AND WOULD TRY AGAIN LATER TO ADMINISTER MEDICATIONS.
[2016-11-19] MEDS: FUROSEMIDE 20 MG TAB PO SCH (09:31)
[2016-11-19] MEDS: Z-GUARD PASTE TP SCH (09:32)
[2016-11-19] MEDS: INSULIN DETEMIR 100 UNITS/ML 10 ML VIAL SUBQ SCH (09:35)
--- NOTE | 2016-11-19 11:00 | NUR ---
PT WAS TURNED AND REPOSITION WITH THE HELP OF SAM ARANDA. PT SACRUM IS RED AND APPLIED Z GAURD. PT IS IN BED NOW RESTING WITH NO S/S OF DISTRESS NOTED.
--- NOTE | 2016-11-19 11:43 | NUR ---
SS NOTE: PER SONYA FROM [facility] ([phone]), PT CAN GO TO ROOM 311B ANYTIME AFTER [address] THANH CHILDERS. BEBETO URIBE.
--- NOTE | 2016-11-19 12:01 | NUR ---
CALLED [facility] AND SET UP [facility] FOR 3:30P.Willard GALLO RN CHARGE NURSE AWARE.
--- NOTE | 2016-11-19 12:15 | NUR ---
PT PULLED OUT IV'S. PT IV CANNULA'S ARE INTACT. PT BED LINENS WERE CHANGED. PT ATE LUNCH AND TOLERATED FOOD WELL. PT IS IN BED ON ROOM AIR AND SHOWS NO S/S OF DISTRESS.
--- NOTE | 2016-11-19 12:45 | NUR ---
CALLED DR CURTIS AND STATED TO LEAVE IN JOVEL CATHETER AND CONTINUE MEDICATIONS.
--- NOTE | 2016-11-19 13:10 | NUR ---
SPOKE WITH ROSALIE FROM [facility] AND GAVE REPORT. ALL QUESTIONS ANSWERED.
--- NOTE | 2016-11-19 13:10 | NUR ---
SS NOTE: MESSAGE LEFT FOR PT'S BROTHER, JAYDEN INFORMING HIM OF PT'S D/C BACK TO [facility]
--- NOTE | 2016-11-19 14:10 | NUR ---
PT IS SLEEPING IN BED AND SHOWS NO S/S OF DISTRESS AT THIS TIME. WILL CONTINUE TO MONITOR.
--- NOTE | 2016-11-19 15:07 | NUR ---
PT IS IN ROOM SLEEPING AND SHOWS NO S/S OF DISTRESS ON ROOM AIR. PT BED IS LOWERED WITH CALL LIGHT WITHIN REACH.
[2016-11-19 16:30] VITALS: BP 144/89
--- NOTE | 2016-11-19 17:08 | NUR ---
TRANSPORTERS ARRIVED ONTO UNIT. VOIDED 500CC ANDER URINE. PT IS AOX1 AND SHOWS NO S/S OF DISTRESS ON ROOM AIR. PT BEEN DISCHARGED. PT UNABLE TO SIGN. DISCHARGE PAPERWORK AND PRESCRIPTIONS SIGNED BY TWO RNS. ALL BELONGINGS AND PRESCRIPTIONS IN PATIENT POSSESSION. PICTURES TAKEN AND RECORDED ON CHART. WRISTBANDS REMOVED. PT LEFT UNIT ON GURNEY BY TWO TRANSPORTERS. PT LEFT IN STABLE CONDITION.
--- NOTE | 2016-11-19 17:08 | NUR ---
IN ADDITION TO PREV NOTE. PT LEFT WITH JOVEL CATHETER IN PLACE PER DR. Kerry CURTIS.
== END 2016-11-19 17:08 | DRG 282 ==
LOC: MED 12:35 → MTU 15:24
PROVIDERS: ADMIT Student in an Organized Health Care Education/Training Program; ATTEND Student in an Organized Health Care Education/Training Program
DX: K85.90 Acute pancreatitis without necrosis or infection, unspecified (principal); N17.0 Acute kidney failure with tubular necrosis; E11.00 Type 2 diabetes mellitus with hyperosmolarity without nonketotic hyperglycemic-hyperosmolar coma (NKHHC); G93.41 Metabolic encephalopathy; L89.151 Pressure ulcer of sacral region, stage 1; D68.59 Other primary thrombophilia; N13.30 Unspecified hydronephrosis; E11.65 Type 2 diabetes mellitus with hyperglycemia; N13.8 Other obstructive and reflux uropathy; N39.0 Urinary tract infection, site not specified; E86.0 Dehydration; E87.5 Hyperkalemia; F25.9 Schizoaffective disorder, unspecified; I10 Essential (primary) hypertension; E78.5 Hyperlipidemia, unspecified; F32.9 Major depressive disorder, single episode, unspecified; H10.9 Unspecified conjunctivitis; K40.90 Unilateral inguinal hernia, without obstruction or gangrene, not specified as recurrent; N20.0 Calculus of kidney; N40.1 Benign prostatic hyperplasia with lower urinary tract symptoms; K21.9 Gastro-esophageal reflux disease without esophagitis; Z88.0 Allergy status to penicillin; Z78.1 Physical restraint status; Z90.49 Acquired absence of other specified parts of digestive tract; Z79.82 Long term (current) use of aspirin; Z79.899 Other long term (current) drug therapy; Z79.4 Long term (current) use of insulin; Z87.891 Personal history of nicotine dependence; Z86.73 Personal history of transient ischemic attack (TIA), and cerebral infarction without residual deficits
CPT/HCPCS: 36415; 70450; 71010; 76770; 76870; 80048; 80053; 80076; 80173; 80305; 81001; 82150; 82553; 82948; 83036; 83605; 83690; 83735; 83880; 84100; 84436; 84439; 84443; 84479; 84484; 85025; 85379; 85610; 85730; 87040; 87081; 87086; 87186; 93005; 93925; 93970; 96365; 96375; 97110; 97116; 97140; 97530; 99285; G0482; J0696; J1630; J1815; J2001; J2060; J3475; J3480; J3490; J7030; J7060; Q0092